=== PATIENT | female | born 1955 ===

== ENCOUNTER 2022-07-15 06:26 | Day surgery (SDC) | payer MEDICARE, OTHER ==
[~2022-07-15 06:26] MED LIST: Dextrose 5%-0.45% NaCl 1,000 ML IV SCH; Sodium Chloride 0.9% 10 ML Syringe FLUSH PRN; Sodium Chloride 0.9% 10 ML Syringe FLUSH SCH
[2022-07-15] MEDS ORDERED: fentaNYL 100 MCG/2 ML SDV ONE (07:13)
[2022-07-15] MEDS ORDERED: Midazolam 1 MG/ML 2 ML SDV ONE (07:13)
[2022-07-15] MEDS ORDERED: fentaNYL 100 MCG/2 ML SDV IV ONE ×4 (07:19→07:32)
[2022-07-15] MEDS ORDERED: Midazolam 1 MG/ML 2 ML SDV IV ONE ×6 (07:20→07:30)
== END 2022-07-15 09:33 | disposition home or self-care (01) ==
LOC: DL.ENDO 06:26
PROVIDERS: ATTEND Internal Medicine Gastroenterology
DX: Z12.11 Encounter for screening for malignant neoplasm of colon (principal); E78.5 Hyperlipidemia, unspecified; I10 Essential (primary) hypertension; G47.00 Insomnia, unspecified; E66.09 Other obesity due to excess calories; Z68.25 Body mass index [BMI] 25.0-25.9, adult; Z88.1 Allergy status to other antibiotic agents; Z90.09 Acquired absence of other part of head and neck
CPT/HCPCS: G0121; J2250; J3010; J7042